=== PATIENT | female | born 1995 ===

== ENCOUNTER 2021-09-06 15:48 | Emergency (ER) | payer SELFPAY ==
[2021-09-06 17:28] VITALS: BP 152/84
[2021-09-06] MEDS ORDERED: ACETAMINOPHEN 500 MG TAB PO ONE (22:27)
[2021-09-06] MEDS ORDERED: METOCLOPRAMIDE 10 MG TAB PO ONE (22:27)
[2021-09-06] MEDS ORDERED: predniSONE 20 MG TAB PO ONE (22:27)
[2021-09-06] MEDS ORDERED: diphenhydrAMINE 25 MG CAP PO ONE (22:27)
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
== END 2021-09-07 05:19 | disposition left against medical advice (07) ==
LOC: ED 15:48
DX: S09.90XA Unspecified injury of head, initial encounter (principal); W19.XXXA Unspecified fall, initial encounter; Y93.89 Activity, other specified; Y92.89 Other specified places as the place of occurrence of the external cause; Y99.8 Other external cause status
CPT/HCPCS: 99282